=== PATIENT | male | born 1940 | race Caucasian/White ===

== ENCOUNTER 2017-07-22 15:13 | Emergency (ER) | payer MEDICARE, OTHER, MEDICAID ==
[2017-07-22] MEDS: LIDOCAINE 5% PATCH TD (17:58)
== END 2017-07-22 19:08 | disposition home or self-care (01) ==
LOC: FTE 15:13
DX: S29.011A Strain of muscle and tendon of front wall of thorax, initial encounter (principal); E11.9 Type 2 diabetes mellitus without complications; F17.210 Nicotine dependence, cigarettes, uncomplicated; I10 Essential (primary) hypertension; I25.10 Atherosclerotic heart disease of native coronary artery without angina pectoris; X58.XXXA Exposure to other specified factors, initial encounter; Y92.9 Unspecified place or not applicable; Z79.84 Long term (current) use of oral hypoglycemic drugs
CPT/HCPCS: 76536; 99284-25

== ENCOUNTER 2018-03-10 14:55 | Emergency (ER) | payer MEDICARE, MEDICAID, OTHER ==
[2018-03-10] MEDS: LIDOCAINE 2% 20 ML UROJET SYRINGE MM (16:53)
[2018-03-10] MEDS: LACTULOSE 30ML CUP PO (16:53)
[2018-03-10] MEDS: NICARDipine HCL 30 MG CAPSULE PO (16:53)
[2018-03-10 17:27] LABS: URINE PH (Dip) POC 5.5 (5.0-8.5)
[2018-03-10 17:27] LABS: URINE BLOOD (Dip) POC Negative (NEGATIVE); URINE GLUCOSE (Dip) POC Negative (NEGATIVE); URINE KETONES (Dip) POC Negative (NEGATIVE); URINE LEUKOCYTE EST (Dip) POC Negative (NEGATIVE); URINE NITRITE (Dip) POC Negative (NEGATIVE); URINE TOTAL PROTEIN POC 3+ (NEGATIVE)
== END 2018-03-10 17:47 | disposition home or self-care (01) ==
LOC: E/R 14:55
DX: K59.00 Constipation, unspecified (principal); E11.9 Type 2 diabetes mellitus without complications; I50.9 Heart failure, unspecified; I11.0 Hypertensive heart disease with heart failure; Z79.84 Long term (current) use of oral hypoglycemic drugs; Z87.891 Personal history of nicotine dependence
CPT/HCPCS: 51702; 81003; 99283-25